=== PATIENT | female | born 1975 | race Caucasian/White ===

== ENCOUNTER 2017-06-15 08:21 | Outpatient (CLI) | payer BC ==
--- NOTE | 2017-06-15 09:36 | RAD ---
LUMBAR SPINE THREE VIEWS: History: 42-year-old female with lumbar radiculopathy and low back pain. Exam includes upright neutral, flexion, and extension views. FINDINGS: Mild generalized disc osteophytosis and minimal facet arthrosis. No malalignment. No abnormal transla tion between flexion and extension. IMPRESSION: Minimal spondylosis. No abnormal translation between flexion and extension. POS: [facility]
== END 2017-06-15 08:22 | disposition home or self-care (01) ==
LOC: TBSIIMAG 08:21
PROVIDERS: ATTEND Neurological Surgery
DX: M54.16 Radiculopathy, lumbar region (principal)
CPT/HCPCS: 72100

== ENCOUNTER 2022-06-05 12:42 | Outpatient (CLI) | payer BC | END 2022-06-05 12:43 | disposition home or self-care (01) | LOC: BICMAMMO 12:42 | PROVIDERS: ATTEND Internal Medicine | DX: Z12.31 Encounter for screening mammogram for malignant neoplasm of breast (principal) | CPT/HCPCS: 77063; 77067 ==

== ENCOUNTER 2025-03-26 15:26 | Outpatient (CLI) | payer BC | END 2025-03-26 15:27 | disposition home or self-care (01) | LOC: BICMAMMO 15:26 | PROVIDERS: ATTEND Nurse Practitioner Family | DX: Z12.31 Encounter for screening mammogram for malignant neoplasm of breast (principal) | CPT/HCPCS: 77063; 77067 ==

== ENCOUNTER 2025-04-01 08:44 | Outpatient (CLI) | payer BC | END 2025-04-01 08:45 | disposition home or self-care (01) | LOC: BICMAMMO 08:44 | PROVIDERS: ATTEND Nurse Practitioner Family | DX: Z13.820 Encounter for screening for osteoporosis (principal) | CPT/HCPCS: 77080 ==